=== PATIENT | female | born 1990 | race Caucasian/White ===

== ENCOUNTER 2018-06-03 22:57 | Outpatient (CLI) | payer BC ==
[~2018-06-03] VITALS: Ht 165.1 cm; Wt 85.9 kg
[2018-06-03 23:31] VITALS: BP 118/72; PULSE 69; TEMP 98.3
[2018-06-03] MEDS ORDERED: PRENATAL MVI PO (23:45)
[2018-06-03] MEDS ORDERED: FERROUS SU325 MG/TAB PO (23:46)
[2018-06-03] MEDS ORDERED: ZANTAC 7575 MG PO (23:47)
[2018-06-04 00:15] VITALS: BP 104/59; PULSE 63
[2018-06-04] MEDS ORDERED: CALCIUM CARBON650 M2 PO (17:16)
== END 2018-06-04 00:55 | disposition home or self-care (01) ==
LOC: LDRO 22:57
DX: O62.9 Abnormality of forces of labor, unspecified (principal); Z3A.40 40 weeks gestation of pregnancy

== ENCOUNTER 2018-06-04 17:06 | Inpatient (IN) | payer BC ==
[~2018-06-04] VITALS: Ht 167.6 cm; Wt 85.0 kg
[2018-06-04] VITALS (23 sets, daily range): BP systolic 99–151; BP diastolic 53–82; PULSE 69–110; TEMP 97.7–98.3
[~2018-06-04 17:06] MED LIST: FERROUS SU325 MG/TAB PO; PRENATAL MVI PO; ZANTAC 7575 MG PO
[2018-06-04] MEDS ORDERED: CALCIUM CARBON650 M2 PO (17:16)
[2018-06-04 17:52] LABS: BASO % 0.1 % (0.0-2.0); GRAN % 85.6 % (42.2-75.2); HEMATOCRIT 38.6 % (37.0-47.0); HEMOGLOBIN 13.1 g/dl (12.5-16.0); LYMPH # 1.3 (1.2-3.4); LYMPH % 6.9 % (20.0-51.0); MEAN CELL VOLUME 92 fl (80.0-100.0); MEAN CORPUSCULAR HEMOGLOBIN 31 pg (27.0-31.0); MEAN CORPUSCULAR HGB CONC 34 g/dl (33.0-37.0); MEAN PLATELET VOLUME 9.7 fl (7.4-10.4); MONO # 1.3 (0.1-0.6); MONO % 6.7 % (1.7-9.3); PLATELET COUNT 256 K/mm3 (130-400); REDCELL DISTRIBUTION WIDTH-CV 12.8 % (11.5-14.5)
[2018-06-05] VITALS: BP 116/58; PULSE 79
[2018-06-05 01:00] VITALS: BP 114/56; PULSE 92
[2018-06-05 02:15] VITALS: BP 112/59; PULSE 88; TEMP 99
[2018-06-05 07:00] VITALS: BP 110/68; PULSE 70; TEMP 98.2
[2018-06-05 16:24] VITALS: BP 100/64; PULSE 72; TEMP 97.1
[2018-06-05 21:30] VITALS: BP 133/114; PULSE 90; TEMP 98.6
[2018-06-06 08:00] VITALS: BP 106/61; PULSE 73; TEMP 98.7
[2018-06-06] MEDS ORDERED: PERCOCET 325 MG1 TA2 PO (10:10)
[2018-06-06] MEDS ORDERED: IBU600 MG PO (10:10)
== END 2018-06-06 11:15 | disposition home or self-care (01) | DRG 807 ==
LOC: LDRO 17:06 → LDR 17:10 → OB 17:10 → LDR 17:10 → OB 06-05 02:00
PROVIDERS: Obstetrics & Gynecology
PROC: 10E0XZZ Delivery of Products of Conception, External Approach (ICD-10-PCS; principal; 2018-06-04)
PROC: 0KQM0ZZ Repair Perineum Muscle, Open Approach (ICD-10-PCS; 2018-06-04)
PROC: 0UQGXZZ Repair Vagina, External Approach (ICD-10-PCS; 2018-06-04)
DX: O77.0 Labor and delivery complicated by meconium in amniotic fluid (principal); Z37.0 Single live birth; Z3A.40 40 weeks gestation of pregnancy; O70.1 Second degree perineal laceration during delivery
CPT/HCPCS: J2590; J7120

== ENCOUNTER → 2018-06-16 | Outpatient (CLI) | payer BC ==
[~2018-06-16] MED LIST changes: +CALCIUM CARBON650 M2 PO; +IBU600 MG PO; +PERCOCET 325 MG1 TA2 PO
== END ==
LOC: MC.RAD 07:15
DX: R22.32 Localized swelling, mass and lump, left upper limb (principal)

== ENCOUNTER 2020-10-04 10:21 | Inpatient (IN) | payer BC ==
[~2020-10-04] VITALS: Ht 167.6 cm; Wt 87.7 kg
[2020-10-04] VITALS (32 sets, daily range): BP systolic 73–145; BP diastolic 38–88; PULSE 59–90; TEMP 97.9–99.4
[~2020-10-04 10:21] MED LIST changes: -PRILOSEC 20MG20 MG PO
--- NOTE | 2020-10-04 10:30 | NUR ---
Presents to labor and delivery. States leaking fluid. Assessment done. Amnio test done, positive results. 1100 Office called and talked to Emily. Let her know that patient here with ruptured membranes, clear fluid. Also let her know that patient not feeling contractions. Let her know that dilated to four, 75 percent effaced, minus two. Questions offered and answered.
[2020-10-04] MEDS ORDERED: PRILOSEC 20MG20 MG PO (11:37)
--- NOTE | 2020-10-04 11:40 | NUR ---
This RN assumes care of patient. IV started in right hand, blood obtained, and to lab. LR infusing. 1320: Patient sitting on birthing ball. 1340: Patient continues to sit on birthing ball and FHR monitor adjusted. 1405: Dr. Rodriguez at bedside assessing patient and FHR strip. SVE-4/90/-2 per physician and orders to continue to increase pitocin.
[2020-10-04 12:38] LABS: BASO % 0.3 % (0.0-2.0); EOS # 0.2 (0.0-0.7); EOS % 1.4 % (0-4.0); GRAN % 64.1 % (42.2-75.2); HEMATOCRIT 39.1 % (37.0-47.0); HEMOGLOBIN 12.8 g/dl (12.5-16.0); LYMPH # 2.9 (1.2-3.4); LYMPH % 26.1 % (20.0-51.0); MEAN CELL VOLUME 91 fl (80.0-100.0); MEAN CORPUSCULAR HEMOGLOBIN 30 pg (27.0-31.0); MEAN CORPUSCULAR HGB CONC 33 g/dl (33.0-37.0); MEAN PLATELET VOLUME 10.9 fl (7.4-10.4); MONO # 0.9 (0.1-0.6); MONO % 7.7 % (1.7-9.3); PLATELET COUNT 320 K/mm3 (130-400); RED BLOOD COUNT 4.32 M/mm3 (4.10-5.30); REDCELL DISTRIBUTION WIDTH-CV 13.9 % (11.5-14.5)
--- NOTE | 2020-10-04 15:10 | NUR ---
Patient requests epidural and L.Andrade [employer] notified. 1536: Patient sitting up on edge of bed for placement of epidural and L. Andrade [employer] at bedside. Difficulty tracing FHR due to patients position. 1543: Test dose given and patient tolerates well. 1546: Patient repositioned and plan of care/safety instructions discussed. 1625: Bain catheter placed and patient tolerates well. SVE 7-8/95/-2. Patient left lateral with right leg resting in stirrup.
--- NOTE | 2020-10-04 16:38 | NUR ---
1638: Patient states she is feeling alot of pressure. SVE-10/100/+1. 1640: Dr. Rodriguez called for delivery. Patient pushes epidural button at this time. 1645: Bain catheter removed and patient tolerates well. 1655: Dr. Rodriguez at bedside and patient set up for vaginal delivery. Pericare done. 1659: Patient pushes and spontaneous vaginal delivery of head followed by body. Infant bulb syringed and to patients abdomen. Bob VERONICA assumes care of . Cord clamped and cut by physican. Cord blood obtained. 1702: Spontaneous delivery of placenta and pitocin bolus started at 333mU/hr per protocol. Fundal massage done/firm/bleeding WNL. Dr. Rodriguez begins to repair laceration. Patients blood pressure-90/51 1714: Patient becomes pale and states "I dont feel so good." Blood pressure-74/41. LR bolus started and Oxygen on via mask at 10ml/hr. Head of bed down. 1715: BP-71/38 1716: BP-73/38 Dr. Rodriguez continues to repair laceration. Fundus firm and bleeding WNL. 1717: BP-83/50, Preethi VERONICA at bedside to assist. 1718: BP-90/53, Patients color coming back. 1722: BP-94/55, patient states "I am feeling a little better" Dr. Rodriguez at bedside and no new orders. Ice pack to perineum and repositioned. 1724: BP-100/59 1729: BP-104/59 1736: BP-123/74 Fundal massage done/firm/bleeding WNL. Patient doing better and plan of care discussed. Will continue to monitor.
--- NOTE | 2020-10-04 19:50 | NUR ---
PT TO BATHROOM VIA WHEELCHAIR LEFT LEG STILL SLIGHTLY NUMB, UNABLE TO VOID AT THIS TIME. THIS NURSE ASSISTED WITH PERICARE, PERIPAD AND MESH UNDERWEAR APPLIED. PT BECAME LIGHTHEADED WHILE IN BATHROOM, ASSISTED BACK TO WHEELCHAIR AND MOVED TO , STATES FEELING BETTER IN ROOM. ORIENTED TO ROOM, BABY REMAINS IN [place] FOR BATH, PT PLANS TO SLEEP FOR APPROXIMATELY 1 HOUR PRIOR TO NEXT FEEDING, REQUEST BABY REMAIN IN [place] TILL THIS TIME.
[2020-10-05 04:15] VITALS: BP 109/60; PULSE 68; TEMP 97.6
[2020-10-05 07:00] VITALS: BP 96/58; PULSE 72; TEMP 98.2
[2020-10-05] MEDS ORDERED: IBU600 MG PO (10:00)
[2020-10-05] MEDS ORDERED: PERCOCET 325 MG1 TA2 PO (10:00)
[2020-10-05 11:40] VITALS: BP 102/57; PULSE 67; TEMP 97.9
[2020-10-05 17:31] VITALS: BP 103/65; PULSE 71; TEMP 98.7
== END 2020-10-05 18:00 | disposition home or self-care (01) | DRG 807 ==
LOC: LDRO 10:21 → LDR 11:20 → OB 20:00
PROVIDERS: ADMIT Obstetrics & Gynecology
PROC: 10E0XZZ Delivery of Products of Conception, External Approach (ICD-10-PCS; principal; 2020-10-04)
PROC: 0KQM0ZZ Repair Perineum Muscle, Open Approach (ICD-10-PCS; 2020-10-04)
DX: O99.02 Anemia complicating childbirth (principal); Z37.0 Single live birth; D64.9 Anemia, unspecified; Z3A.39 39 weeks gestation of pregnancy; O70.1 Second degree perineal laceration during delivery; Z20.822 Contact with and (suspected) exposure to COVID-19
CPT/HCPCS: J2590; J7120

== ENCOUNTER → 2020-10-04 | Outpatient (CLI) | payer BC ==
[~2020-10-04] MED LIST changes: +PRILOSEC 20MG20 MG PO
== END | disposition still patient (30) ==
LOC: ZCOL.LAB
DX: Z20.822 Contact with and (suspected) exposure to COVID-19 (principal)